=== PATIENT | male | born 1990 | race Caucasian/White ===

== ENCOUNTER 2019-02-10 12:48 | Outpatient (CLI) | payer OTHER | END 2019-02-10 23:59 | disposition home or self-care (01) | LOC: CFH 12:48 | PROVIDERS: ATTEND Family Medicine | DX: M48.07 Spinal stenosis, lumbosacral region (principal) | CPT/HCPCS: 72100 ==

== ENCOUNTER 2019-02-20 17:17 | Outpatient (CLI) | payer OTHER | END 2019-02-20 23:59 | disposition home or self-care (01) | LOC: RAD 17:17 | PROVIDERS: ATTEND Family Medicine | DX: J18.9 Pneumonia, unspecified organism (principal); M41.80 Other forms of scoliosis, site unspecified | CPT/HCPCS: 71046 ==